=== PATIENT | female | born 2000 | race Two or more races ===

== ENCOUNTER 2019-08-26 09:04 | Emergency (ER) | payer OTHER, MEDICAID ==
[2019-08-26 09:54] LABS: Urine Bacteria FEW /hpf (None Seen); Urine Blood Negative /uL (Negative); Urine Specific Gravity 1.005 (1.001-1.035); Urine WBC <1 /hpf (0 - 5)
[2019-08-26] MEDS ORDERED: diphenhdrAMINE HCL 50 MG/1 ML VL IV ONE (11:00)
[2019-08-26] MEDS ORDERED: DexAMETHasone SOD PHOS 4 MG/1ML SDV INJ IV ONE (11:00)
[2019-08-26] MEDS ORDERED: PANTOPRAZOLE 40 MG/10 ML VIAL INJ IV ONE (11:00)
[2019-08-26] MEDS ORDERED: PROMETHAZINE HCL 25 MG/ML 1ML ONE (11:52)
[2019-08-26] MEDS ORDERED: PROMETHAZINE HCL 25 MG/ML 1ML IV ONE (12:15)
[2019-08-26 16:00] VITALS: BP 118/62
== END 2019-08-26 16:30 | disposition home or self-care (01) ==
LOC: ER 09:04 → EDBD 09:04 → ER 16:30
DX: L50.9 Urticaria, unspecified (principal)
CPT/HCPCS: 81001; 96374; 96375; 99284; C9113; J1100; J1200; J2550

== ENCOUNTER 2020-04-24 07:12 | Emergency (ER) | payer OTHER, MEDICAID ==
[~2020-04-24] VITALS: Ht 162.6 cm; Wt 95.3 kg
[2020-04-24] MEDS ORDERED: SODIUM CHLORIDE 0.9% 1,000 ML IV ONE (07:45)
[2020-04-24 08:14] LABS: Calcium 9.2 mg/dL (8.5-10.1); Potassium 4.1 mmol/L (3.5-5.1)
[2020-04-24 08:15] LABS: BUN/Creatinine Ratio 7.4
[2020-04-24] MEDS ORDERED: KETOROLAC TROMETH 30 MG/ML 1ML VIAL IV ONE (08:15)
[2020-04-24 08:35] LABS: Basophils # (auto) 0 10 ^3/uL (0-0.2); Basophils % (auto) 0.1 % (0.0-2.0); Eosinophils # (auto) 0.1 10 ^3/uL (0-0.8); Eosinophils % (auto) 1.2 % (0.0-7.0); Lymphocytes # (auto) 3.4 10 ^3/uL (0.4-5.4); Lymphocytes % (auto) 41.4 % (10.0-50.0); Mean Corpuscular Hemoglobin 31.6 pg (28.0-32.0); Mean Corpuscular Volume 92.8 fL (80.0-100.0); Monocytes # (auto) 0.6 10 ^3/uL (0-1.3); Monocytes % (auto) 7.6 % (0.0-12.0); Neutrophils # (auto) 4.1 10 ^3/uL (1.6-8.6); Neutrophils % (auto) 49.7 % (37.0-80.0); Nucleated Red Blood Cells % 0.1 %; Platelet Count (auto) 341 10^3/uL (140-450); Red Blood Cells 4.42 10^6/uL (4.0-5.20); Red Cell Distribution Width 12.8 % (11.8-14.3); White Blood Cell 8.2 10^3/uL (4.4-10.8)
[2020-04-24 10:10] VITALS: BP 120/74
== END 2020-04-24 10:21 | disposition home or self-care (01) ==
LOC: ER 07:12
DX: N83.201 Unspecified ovarian cyst, right side (principal)
CPT/HCPCS: 36415; 74176; 76830; 76856; 80048; 85025; 96361; 96374; 99285; J1885; J7030